=== PATIENT | female | born 1985 | race Caucasian/White ===

== ENCOUNTER 2016-08-06 18:45 | Emergency (ER) | payer MEDICAID ==
[2016-08-06 18:48] VITALS: BP 139/95
[2016-08-06] MEDS ORDERED: Ketorolac 60 MG/2 ML SDV IM ONE (18:49)
[2016-08-06] MEDS ORDERED: Ondansetron 4 MG Tab.DIS PO ONE (18:49)
[2016-08-06] MEDS ORDERED: Ondansetron 4 MG Tab.DIS ONE (19:00)
[2016-08-06] MEDS ORDERED: Ketorolac 10 MG Tab ONE (19:00)
--- NOTE | 2016-08-06 23:06 | ER ---
HISTORY OF PRESENT ILLNESS: A 31-year-old lady who comes in with her with complaints of a migraine headache. She has had the headache for several days. It started out on the left side of her head, now it has rotated to the right side of her head the last couple of days and it wraps over the top of her head. She states this is her typical migraine. The patient has Topamax that she takes at home. She also uses Imitrex, it is not helping this time. She has been involved with a neurologist recently, and they are increasing her Topamax. The patient has an upcoming appointment in a few days with a neurologist once again. She denies any falls or injuries. She is sensitive to loud noises and to a lesser degree bright lights with this headache. The patient has tried going to work today, and her headache got worse. She rates her pain currently at 8/10. OBJECTIVE: GENERAL APPEARANCE: The patient is awake and alert. She is lying quietly on the exam table. She is able to sit up without any difficulty. VITAL SIGNS: Reviewed. Blood pressure 139/95, pulse is 95, O2 sats are good. NECK: Supple. LUNGS: Clear. ORAL: Mucous membranes are moist. Tonsils not enlarged or injected. Pharynx not inflamed. SKIN: Warm and dry. DIAGNOSIS: Migraine headache. TREATMENT PLAN: Toradol 60 mg was given IM, Zofran 4 mg was given sublingually. We monitored the patient for about 30 minutes, and her pain decreased to a 5/10. She feels that she is definitely improving. At this point, she will be discharged home with her . She is to get a good night's sleep tonight, and she is to take the day off tomorrow. I did give her more Toradol tablets. She can take 10 mg every 8 hours giving 3 more tablets, and we gave her a few Zofran sublingual tablets to take every 4 hours as needed. She is to get rest tonight and tomorrow and increase activity as tolerated. I do want the patient to follow up with a neurologist as scheduled or her primary care provider by early next week if her symptoms have not resolved. CRS/MODL /[id number]
== END 2016-08-06 19:15 | disposition home or self-care (01) ==
LOC: LB.ED 18:45
DX: G43.909 Migraine, unspecified, not intractable, without status migrainosus (principal)
CPT/HCPCS: 96372; 99283; A9270; J1885

== ENCOUNTER 2016-08-18 21:23 | Emergency (ER) | payer MEDICAID ==
[2016-08-18] MEDS ORDERED: Cephalexin 500 MG Cap ONE (22:30)
[2016-08-18] MEDS ORDERED: Acetaminophen/oxyCODONE 325-5 MG Tab ONE (22:30)
[2016-08-18] MEDS ORDERED: Phenazopyridine 100 MG Tab ONE (22:30)
[2016-08-18 22:39] VITALS: BP 133/89
--- NOTE | 2016-08-21 00:38 | ER ---
The patient enters the ER with 1-day history of urinary frequency and dysuria especially at the end of her urination. She has had no fevers, no vomiting, no urgency, no recent foreign travel. She does have a history of kidney stones, and she does have a history of mild chronic renal insufficiency. REVIEW OF SYSTEMS: CONSTITUTIONAL: The patient denies any fever or fatigue. She did have some recent weight gain when she was put on a mood stabilizer. She no longer takes that medication. EYES: Show no vision changes. EARS, NOSE, AND THROAT: No complaints. CARDIOVASCULAR: No complaints of chest pain or palpitations. RESPIRATORY: No coughing, wheezing, or shortness of breath. GI: No nausea, vomiting, diarrhea, constipation, heartburn, or rectal bleeding. : As above with one day of frequency and pain at the end of urination but no urgencies, no fever or burning. MUSCULOSKELETAL: No joint pain. SKIN: No rashes. NEURO: No focal weaknesses or headaches. PSYCH: She does have history of anxiety/depression which seems to be relatively controlled at the moment. PHYSICAL EXAMINATION: GENERAL: A well-developed, well-nourished female. She is alert. She is oriented x3. She is in no acute distress. VITAL SIGNS: Stable. Blood pressure is 133/89, pulse 77, saturations 100%. She is afebrile. EYES: Show EOMI, PERRLA. EARS, NOSE, AND THROAT: Clear. NECK: Symmetrical. No palpable thyroid. No bruits. LYMPH NODE: Exam is negative. LUNGS: Clear. HEART: Shows regular rate and rhythm. No murmurs, rubs, or gallops. No S3, no S4. ABDOMEN: Soft, nontender. No masses. No suprapubic pain. No CVA tenderness. EXTREMITIES: No clubbing, cyanosis, or edema. She has normal gait. No joint inflammation or restricted motion. SKIN: Shows no rashes or sores. NEUROLOGIC: Cranial nerves intact. No focal deficits in motor, sensory, or cerebellar dysfunction. PSYCH: Normal judgment and insight. Her memory is intact. Her mood is appropriate. She is oriented x3. ASSESSMENT: 1. Urinary tract infection. 2. History of kidney stones. 3. History of mild chronic renal insufficiency. PLAN: The patient will be started on the antibiotic. She was given Keflex in the emergency room 500 mg p.o. t.i.d. #20. She will be started on Pyridium one p.o. t.i.d. #12 and for pain as needed. She will get Percocet 5-325 one p.o. q.6 hours p.r.n. #10. She is to avoid nonsteroidals due to her chronic renal insufficiency. In clinic, recent lab show a GFR of 52. She will be referred to Urology as an outpatient for evaluation of renal function. If her bladder is emptying properly and there are no residual kidney stones, then she will have nephrology evaluation for her renal insufficiency. KRIS/FREDDIE /[id number]
== END 2016-08-18 22:40 | disposition home or self-care (01) ==
LOC: LB.ED 21:23
DX: N39.0 Urinary tract infection, site not specified (principal); Z87.440 Personal history of urinary (tract) infections; N18.9 Chronic kidney disease, unspecified
CPT/HCPCS: 81001; 99283; A9270

== ENCOUNTER 2016-12-16 05:07 | Observation (INO) | payer MEDICAID ==
[2016-12-16] MEDS ORDERED: HYDROmorphone 2 MG/ML Syringe SUBCUT ONE (05:45)
[2016-12-16] MEDS ORDERED: Promethazine 25 MG/ML SDV IM ONE (05:50)
--- NOTE | 2016-12-16 05:53 | EDM.PDOC ---
ED HPI GENERAL MEDICAL PROBLEM - General Chief Complaint: General Stated Complaint: POSSIBLE KIDNEY STONE Time Seen by Provider: 12/16/16 05:45 Source of Information: Reports: Patient, RN History Limitations: Reports: No Limitations - History of Present Illness INITIAL COMMENTS - FREE TEXT/NARRATIVE: 31 yr female presents with severe left sided back pain and radiates around into groin. States history of kidney stones 2 year ago. States she is menstruating too and unable to void at this time. Onset: Today Onset Date: 12/16/16 Onset Time: 03:00 Location: Reports: Back Left Abdominal Pain Score (Numeric/FACES): 9 - Related Data Allergies Allergy/AdvReac Type Severity Reaction Status Date / Time doxycycline Allergy Nausea Verified 12/16/16 05:34 Home Meds: Home Meds Topiramate [Topamax] 100 mg PO DAILY 05/18/14 [History] Venlafaxine HCl [Venlafaxine HCl] 75 mg PO DAILY 08/18/16 [History] Past Medical History HEENT History: Reports: Impaired Vision Genitourinary History: Reports: Renal Calculus [employer] History: Reports: Neurological History: Reports: Migraines Psychiatric History: Reports: Anxiety, Depression - Infectious Disease History Infectious Disease History: Reports: Chicken Pox - Past Surgical History Female Surgical History: Reports: Section Social & Family History - Family History Family Medical History: Noncontributory - Tobacco Use Smoking Status *Q: Never Smoker Second Hand Smoke Exposure: No - Caffeine Use Caffeine Use: Reports: Coffee - Alcohol Use Days Per Week of Alcohol Use: 0 - Recreational Drug Use Recreational Drug Use: No ED ROS GENERAL - Review of Systems Review Of Systems: See Below Constitutional: Reports: No Symptoms HEENT: Reports: No Symptoms Respiratory: Reports: No Symptoms Cardiovascular: Reports: No Symptoms GI/Abdominal: Reports: Abdominal Pain, Nausea : Reports: Other (menstrating) Musculoskeletal: Reports: Back Pain ED EXAM, GENERAL - Physical Exam Exam: See Below Exam Limited By: No Limitations General Appearance: Alert, WD/WN Head: Atraumatic, Normocephalic Respiratory/Chest: No Respiratory Distress GI/Abdominal: Soft, No Distention, Guarding Back Exam: Other (left sided back pain) Neurological: Alert, Oriented Psychiatric: Normal Affect, Normal Mood Skin Exam: Warm, Dry, Normal Color Course - Vital Signs Last Recorded V/S: Last Vital Signs Temp 94.2 F L 12/16/16 05:38 Pulse 68 12/16/16 05:38 Resp 20 12/16/16 05:38 BP 134/91 H 12/16/16 05:38 Pulse Ox 100 12/16/16 05:38 - Orders/Labs/Meds Orders: Active Orders 24 hr Category Date Time Status Patient Status [ADT] Routine ADT 12/16/16 07:15 Ordered Oxygen Therapy [RC] PRN Care 12/16/16 07:15 Ordered VTE/DVT Education [RC] Per Unit Routine Care 12/16/16 07:15 Ordered Vital Signs [RC] Q4H Care 12/16/16 07:15 Ordered Regular Diet [DIET] Diet 12/16/16 Lunch Ordered Abdomen Pelvis wo Cont [CT] Stat Exams 12/16/16 05:58 Taken URINALYSIS W/MICROSCOPIC [UA W/MICROSCOPIC] [URIN] Stat Lab 12/16/16 06:01 Uncollected Acetaminophen [Tylenol] Med 12/16/16 07:15 Ordered 650 mg PO Q4H PRN Sodium Chloride 0.9% [Normal Saline] 1,000 ml Med 12/16/16 06:00 Active IV ASDIRECTED Resuscitation Status Routine Resus Stat 12/16/16 07:15 Ordered Medication Orders Acetaminophen (Tylenol) 650 mg PO Q4H PRN PRN Reason: Pain (Mild 1-3)/fever Sodium Chloride (Normal Saline) 1,000 mls @ 150 mls/hr IV ASDIRECTED VENECIA Last Admin: 12/16/16 06:15 Dose: 150 mls/hr Labs: Laboratory Tests 12/16/16 12/16/16 Range/Units 06:40 06:40 WBC 9.7 (4.0-11.0) K/uL RBC 3.79 L (3.80-5.80) M/uL Hgb 12.9 (11.5-16.5) g/dL Hct 37.0 (37.0-47.0) % MCV 98 H (76-96) fL MCH 34.0 H (27.0-32.0) pg MCHC 34.9 (31.0-35.0) g/dL RDW 11.9 (11.0-16.0) % Plt Count 214 D (150-500) K/uL MPV 9.8 (6.0-10.0) fL Neut % (Auto) 75.3 H (45.0-70.0) % Lymph % (Auto) 18.5 L (20.0-40.0) % [place] % (Auto) 5.0 (3.0-10.0) % Eos % (Auto) 0.9 L (1.0-5.0) % Baso % (Auto) 0.3 (0.0-0.5) % Neut # (Auto) 7.33 (2.00-7.50) K/uL Lymph # (Auto) 1.80 (1.50-4.00) K/uL [place] # (Auto) 0.49 (0.20-0.80) K/uL Eos # (Auto) 0.09 (0.04-0.40) K/uL Baso # (Auto) 0.03 (0.02-0.10) K/uL Sodium 141 (136-145) mmol/L Potassium 3.4 L (3.5-5.1) mmol/L Chloride 109 H (98-107) mmol/L Carbon Dioxide 22.2 (21.0-32.0) mmol/L Anion Gap 13.2 (5.0-15.0) mmol/L BUN 15 (8-26) mg/dL Creatinine 1.17 H (0.55-1.02) mg/dL Est Cr Clr Drug Dosing 54.09 mL/min Estimated GFR (MDRD) 53 L (>60) MLS/MIN BUN/Creatinine Ratio 12.8 (6-25) Glucose 104 H (74-100) mg/dL Calcium 8.2 L (8.5-10.1) mg/dL Meds: Medications Generic Name Dose Route Start Last Admin Trade Name Freq PRN Reason Stop Dose Admin Acetaminophen 650 mg 12/16/16 07:15 Tylenol PO Q4H PRN Pain (Mild 1-3)/fever Sodium Chloride 1,000 mls @ 150 mls/hr 12/16/16 06:00 12/16/16 06:15 Normal Saline IV 150 mls/hr ASDIRECTED VENECIA Administration Discontinued Medications Generic Name Dose Route Start Last Admin Trade Name Freq PRN Reason Stop Dose Admin Hydromorphone HCl 2 mg 12/16/16 05:45 12/16/16 05:48 Dilaudid SUBCUT 12/16/16 05:46 2 mg ONETIME ONE Administration Ketorolac Tromethamine 30 mg 12/16/16 07:15 Toradol IVPUSH 12/16/16 07:19 Q6H PRN Pain (moderate 4-6) Promethazine HCl 25 mg 12/16/16 05:50 12/16/16 05:51 Phenergan IM 12/16/16 05:51 25 mg ONETIME ONE Administration Departure - Departure Time of Disposition: 07:15 Disposition: Refer to Observation Condition: Good Clinical Impression: Hydroureteronephrosis, History of kidney stones - Discharge Information Forms: ED Department Discharge - My Orders Last 24 Hours: My Active Orders 12/16/16 05:58 Abdomen Pelvis wo Cont [CT] Stat 12/16/16 06:00 Sodium Chloride 0.9% [Normal Saline] 1,000 ml IV ASDIRECTED 12/16/16 06:01 URINALYSIS W/MICROSCOPIC [UA W/MICROSCOPIC] [URIN] Stat 12/16/16 07:15 Patient Status [ADT] Routine Oxygen Therapy [RC] PRN VTE/DVT Education [RC] Per Unit Routine Vital Signs [RC] Q4H Acetaminophen [Tylenol] 650 mg PO Q4H PRN Resuscitation Status Routine 12/16/16 Lunch Regular Diet [DIET] - Assessment/Plan Last 24 Hours: My Active Orders 12/16/16 05:58 Abdomen Pelvis wo Cont [CT] Stat 12/16/16 06:00 Sodium Chloride 0.9% [Normal Saline] 1,000 ml IV ASDIRECTED 12/16/16 06:01 URINALYSIS W/MICROSCOPIC [UA W/MICROSCOPIC] [URIN] Stat 12/16/16 07:15 Patient Status [ADT] Routine Oxygen Therapy [RC] PRN VTE/DVT Education [RC] Per Unit Routine Vital Signs [RC] Q4H Acetaminophen [Tylenol] 650 mg PO Q4H PRN Resuscitation Status Routine 12/16/16 Lunch Regular Diet [DIET]
[2016-12-16] MEDS ORDERED: Sodium Chloride 0.9% 1,000 ML IV SCH (06:00)
[2016-12-16] MEDS ORDERED: Acetaminophen 325 MG Tab PO PRN (07:15)
[2016-12-16] MEDS ORDERED: Ketorolac 60 MG/2 ML SDV IVPUSH PRN (07:15)
[2016-12-16] MEDS ORDERED: HYDROmorphone 2 MG/ML Syringe IVPUSH PRN (08:10)
[2016-12-16] MEDS ORDERED: Ketorolac 10 MG Tab PO PRN (09:19)
[2016-12-16] MEDS ORDERED: Tamsulosin 0.4 MG Cap.ER PO ONE (09:20)
--- NOTE | 2016-12-16 10:15 | CT ---
DATE OF SERVICE: 12/16/16 CLINICAL DATA: flank pain UNENHANCED ABDOMEN AND PELVIC CT: Multislice acquisition through the abdomen and pelvis without IV or oral contrast was performed. No priors. The lung bases are clear. The unenhanced liver appears normal. No focal hepatic lesions. The gallbladder appears normal. The spleen appears normal. 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 The pancreas appears normal. The right and left adrenals appear normal. There are multiple nonobstructing renal calculi on the left. There is a 2 mm distal ureteral calculus on the left located in the distal left ureter just proximal to the ureterovesical junction. There is mild hydronephrosis and hydroureter proximal to it consistent with obstruction. No nephrocalcinosis or nephrolithiasis on the right. No hydronephrosis or hydroureter on the right. The bladder is partially fluid-filled. There is apparent diffuse bladder wall thickening. This is probably related to nondistension. Cystitis should at least be considered. No evidence of appendicitis. No free air. No free fluid. No dilated loops of bowel. No adenopathy. No aortic aneurysm. There are paraumbilical ventral hernias containing fat. There is a gas density structure within the vagina consistent with a tampon. No other significant findings. IMPRESSION: A 2 mm distal ureteral calculus on left with obstruction. Nonobstructing renal calculi on left. Other findings as discussed above. [id number] [facility]
--- NOTE | 2016-12-16 13:35 | PCM.DCSUM1 ---
Discharge Summary - Hospital Course Free Text/Narrative:: 31 yr female presents this am with left flank pain radiating into groin. History of renal calculi. CT completed and 2mm distal ureteral calculus noted with mild hydronephrosis. Reviewed case with Dr Adam, urologist, Stacey Sher and states pt should pass stone within next 3-5 days. Recommend return in next week if temperature noted or signs of UTI. Rx for Flomax and Ketorolac sent to [facility] for pt. Pt to strain urine at home and bring any stone in for analysis. Recommend up ad drake at home and increase fluids with regular diet. RTC within 2 weeks for follow-up or sooner if pain persists or temperature or signs of UTI. - Discharge Data Discharge Date: 12/16/16 Discharge Disposition: Home, Self-Care 01 Condition: Good - Discharge Diagnosis/Problem(s) (1) Renal calculus, left SNOMED Code(s): 80717828 ICD Code: N20.0 - CALCULUS OF KIDNEY Status: Acute Priority: High Current Visit: Yes - Patient Instructions Diet: Regular Diet as Tolerated Activity: As Tolerated Driving: Do Not Drive Showering/Bathing: May Shower Notify Provider of: Fever, Increased Pain Other/Special Instructions: Return for follow-up in 2 weeks or sooner if increase in pain or signs of UTI. Take Ketorolac after eating to prevent GI distress. - Discharge Plan Home Medications: Home Meds Topiramate [Topamax] 100 mg PO DAILY 05/18/14 [History] Venlafaxine HCl [Venlafaxine HCl] 75 mg PO DAILY 08/18/16 [History] Patient Handouts: Kidney Stones, [id number], Tamsulosin capsules, Ketorolac tablets Forms: ED Department Discharge Referrals: PCP,None [Primary Care Provider] - - Patient Data Vitals - Most Recent: Last Vital Signs Temp 98 F 12/16/16 08:15 Pulse 88 12/16/16 08:15 Resp 16 12/16/16 08:15 BP 107/70 12/16/16 08:15 Pulse Ox 99 12/16/16 08:15 Weight - Most Recent: 7 lb 8 oz I&O - Last 24 hours: Intake & Output 12/15/16 12/16/16 12/16/16 22:59 06:59 14:59 Intake Total 0 Balance 0 Lab Results - Last 24 hrs: Laboratory Results - last 24 hr 12/16/16 Range/Units Unknown Urine Color Yellow Urine Appearance Clear (CLEAR) Urine pH 6.5 (5.0-8.0) Ur Specific [place] 1.015 (1.003-1.030) Urine Protein Negative (NEGATIVE) mg/dL Urine Glucose (UA) Negative (NEGATIVE) mg/dL Urine Ketones Negative (NEGATIVE) mg/dL Urine Occult Blood Moderate H (NEGATIVE) Urine Nitrite Negative (NEGATIVE) Urine Bilirubin Negative (NEGATIVE) Urine Urobilinogen 0.2 (0.2-1.0) E.U./dL Ur Leukocyte Esterase Negative (NEGATIVE) Urine RBC 5-10 H /HPF Urine WBC Not seen /HPF Ur Squamous Epith Cells Few /HPF Med Orders - Current: Current Medications Acetaminophen (Tylenol) 650 mg PO Q4H PRN PRN Reason: Pain (Mild 1-3)/fever Ketorolac Tromethamine (Toradol) 10 mg PO Q6H PRN PRN Reason: Pain Stop: 12/21/16 09:20 Last Admin: 12/16/16 09:55 Dose: 10 mg Discontinued Medications Hydromorphone HCl (Dilaudid) 2 mg SUBCUT ONETIME ONE Stop: 12/16/16 05:46 Last Admin: 12/16/16 05:48 Dose: 2 mg Hydromorphone HCl (Dilaudid) 1 mg IVPUSH Q2H PRN PRN Reason: Pain Last Admin: 12/16/16 08:20 Dose: 1 mg Sodium Chloride (Normal Saline) 1,000 mls @ 150 mls/hr IV ASDIRECTED VENECIA Last Admin: 12/16/16 06:15 Dose: 150 mls/hr Ketorolac Tromethamine (Toradol) 30 mg IVPUSH Q6H PRN PRN Reason: Pain (moderate 4-6) Stop: 12/16/16 07:19 Promethazine HCl (Phenergan) 25 mg IM ONETIME ONE Stop: 12/16/16 05:51 Last Admin: 12/16/16 05:51 Dose: 25 mg Tamsulosin HCl (Flomax) 0.4 mg PO ONETIME ONE Stop: 12/16/16 09:21 Last Admin: 12/16/16 09:55 Dose: 0.4 mg *Q Meaningful Use (DIS) - VTE *Q VTE Criteria *Q: - Stroke *Q Stroke Criteria *Q: - AMI *Q AMI Criteria *Q:
[2016-12-16 13:56] VITALS: BP 90/59
== END 2016-12-16 13:40 | disposition home or self-care (01) ==
LOC: LB.ED 05:07 → LB.MS 07:15
PROVIDERS: ADMIT Nurse Practitioner Family; ATTEND Nurse Practitioner Family
DX: N20.0 Calculus of kidney (principal); F41.9 Anxiety disorder, unspecified; F32.9 Major depressive disorder, single episode, unspecified; Z88.1 Allergy status to other antibiotic agents; Z98.890 Other specified postprocedural states; Z79.899 Other long term (current) drug therapy
CPT/HCPCS: 36415; 74176; 80048; 81001; 85025; 96372; 96374; 99284; A9270; G0378; J1170; J2550; J7040

== ENCOUNTER 2022-05-17 19:49 | Emergency (ER) | payer MEDICAID ==
[2022-05-17] MEDS ORDERED: Acetaminophen/HYDROcodone 325-5 MG Tab ONE (20:55)
[2022-05-17 21:59] VITALS: BP 140/92; PULSE 92
== END 2022-05-17 21:00 | disposition home or self-care (01) ==
LOC: LB.ED 19:49
DX: S63.502A Unspecified sprain of left wrist, initial encounter (principal); Z88.1 Allergy status to other antibiotic agents; Z88.8 Allergy status to other drugs, medicaments and biological substances; W18.30XA Fall on same level, unspecified, initial encounter
CPT/HCPCS: 73110-LT; 99283; A9270-GY

== ENCOUNTER 2023-02-22 15:45 | Emergency (ER) | payer MEDICAID ==
[2023-02-22] MEDS: methylPREDNISolone Sodium Succinate 125 MG/2 ML SDV IM ONE (16:25)
[2023-02-22] MEDS: Ketorolac 30 MG/ML SDV IM ONE (16:25)
[2023-02-22 16:38] LABS: APPEARANCE,URINE CLOUDY (CLEAR); BILIRUBIN,URINE NEGATIVE (NEGATIVE); COLOR,URINE YELLOW; GLUCOSE,URINE NEGATIVE (NEGATIVE); KETONES,URINE NEGATIVE (NEGATIVE); LEUKOCYTE ESTERASE,URINE NEGATIVE (NEGATIVE); NITRITE,URINE NEGATIVE (NEGATIVE); OCCULT BLOOD,URINE NEGATIVE (NEGATIVE); PROTEIN,URINE NEGATIVE (NEGATIVE)
[2023-02-22] MEDS: Orphenadrine 60 MG/2 ML Inj IM ONE (17:15)
[2023-02-22] MEDS: Orphenadrine 60 MG/2 ML Inj ONE (18:55)
[2023-02-22] MEDS ORDERED: Cyclobenzaprine 10 MG Tab ONE (19:00)
[2023-02-22 19:44] VITALS: BP 137/88; PULSE 69
== END 2023-02-22 19:10 | disposition home or self-care (01) ==
LOC: LB.ED 15:45
DX: M25.552 Pain in left hip (principal); Z88.1 Allergy status to other antibiotic agents; Z88.8 Allergy status to other drugs, medicaments and biological substances
CPT/HCPCS: 73502-LT; 81003; 96372; 99283; A9270-GY; J1885; J2360; J2930

== ENCOUNTER 2023-03-05 15:16 | Emergency (ER) | payer OTHER, MEDICAID ==
[2023-03-05 15:35] VITALS: BP 140/90; PULSE 79
== END 2023-03-05 16:16 | disposition home or self-care (01) ==
LOC: LB.ED 15:16
DX: S61.213A Laceration without foreign body of left middle finger without damage to nail, initial encounter (principal); E03.9 Hypothyroidism, unspecified; Z88.8 Allergy status to other drugs, medicaments and biological substances; Z79.899 Other long term (current) drug therapy; W26.0XXA Contact with knife, initial encounter
CPT/HCPCS: 12001; 99282

== ENCOUNTER 2023-06-19 20:05 | Emergency (ER) | payer BC, MEDICAID ==
[2023-06-19 20:46] LABS: BASOPHILS ABSOLUTE AUTO 0.08 K/uL (0.02-0.10); EOSINOPHILS ABSOLUTE AUTO 0.09 K/uL (0.04-0.40); EOSINOPHILS PERCENT AUTO 1.1 % (1.0-5.0); HEMATOCRIT 42.4 % (37.0-47.0); HEMOGLOBIN 14.6 g/dL (11.5-16.5); LYMPHOCYTES ABSOLUTE AUTO 2.39 K/uL (1.50-4.00); MEAN CORPUSCULAR HGB CONC 34.4 g/dL (31.0-35.0); MEAN CORPUSCULAR VOLUME 96 fL (76-96); MEAN PLATELET VOLUME 10.6 fL (6.0-10.0); MONOCYTES ABSOLUTE AUTO 0.48 K/uL (0.20-0.80); MONOCYTES PERCENT AUTO 5.8 % (3.0-10.0); NEUTROPHILS ABSOLUTE AUTO 5.19 K/uL (2.00-7.50); NEUTROPHILS PERCENT AUTO 63.1 % (45.0-70.0); PLATELET COUNT,PLT 273 K/uL (150-500); RED BLOOD CELL COUNT 4.42 M/uL (3.80-5.80); RED CELL DISTRIBUTION WIDTH 12.3 % (11.0-16.0); WHITE BLOOD CELL COUNT,WBC 8.2 K/uL (4.0-11.0)
[2023-06-19 20:52] LABS: A/G RATIO 1.6 (0.8-2.0); ALBUMIN 3.9 g/dL (3.4-5.0); BILIRUBIN TOTAL 0.4 mg/dL (0.0-1.0); BUN/CREATININE RATIO 6.4 (6-25); CALCIUM 8.4 mg/dL (8.5-10.1); CARBON DIOXIDE,CO2 23.6 mmol/L (21.0-32.0); CREATININE 1.1 mg/dL (0.55-1.02); EST CRCL DRUG DOSING (CG) 51.81 mL/min; POTASSIUM,K 3.6 mmol/L (3.5-5.1); PROTEIN TOTAL,TP 6.4 g/dL (6.4-8.2)
[2023-06-19] MEDS: Naloxone 2 MG/2 ML Syringe IVPUSH PRN (20:58)
[2023-06-19 21:13] LABS: AMPHETAMINES SCREEN, URINE NEGATIVE (NEGATIVE); BARBITURATE SCREEN,URINE NEGATIVE (NEGATIVE); BENZODIAZEPINES SCREEN,URINE POSITIVE (NEGATIVE); METHADONE SCREEN, URINE NEGATIVE (NEGATIVE); METHAMPHETAMINES SCREEN, URINE NEGATIVE (NEGATIVE); OXYCODONE SCREEN,URINE NEGATIVE (NEGATIVE); THC SCREEN,URINE 50 NG/ML POSITIVE (NEGATIVE)
[2023-06-20] MEDS: Sodium Chloride 0.9% 1,000 ML IV ONE (01:55)
[2023-06-20] MEDS: Naloxone 2 MG/2 ML Syringe IVPUSH PRN (01:55)
[2023-06-20] MEDS: Acetaminophen 500 MG Tab PO ONE (04:21)
[2023-06-20] MEDS: Acetaminophen 500 MG Tab ONE (04:51)
[2023-06-20 10:30] LABS: BENZODIAZEPINES SCREEN,URINE POSITIVE (NEGATIVE); THC SCREEN,URINE 50 NG/ML POSITIVE (NEGATIVE)
[2023-06-20 10:31] LABS: AMPHETAMINES SCREEN, URINE NEGATIVE (NEGATIVE); BARBITURATE SCREEN,URINE NEGATIVE (NEGATIVE); METHADONE SCREEN, URINE NEGATIVE (NEGATIVE); METHAMPHETAMINES SCREEN, URINE NEGATIVE (NEGATIVE); OXYCODONE SCREEN,URINE POSITIVE (NEGATIVE)
[2023-06-20] MEDS: Ondansetron 4 MG Tab.DIS PO ONE (11:09)
[2023-06-20] MEDS: Ondansetron 4 MG Tab.DIS ONE (11:15)
[2023-06-20 12:16] VITALS: BP 88/58; PULSE 88
== END 2023-06-20 11:30 ==
LOC: LB.ED 20:23 → SUPCPDRO 20:23 → LB.ED 06-20 11:30
DX: T40.2X2A Poisoning by other opioids, intentional self-harm, initial encounter (principal); Z79.899 Other long term (current) drug therapy; Z88.1 Allergy status to other antibiotic agents; Z88.8 Allergy status to other drugs, medicaments and biological substances
CPT/HCPCS: 36415; 80053; 80143; 80307; 81025; 85025; 87635; 93005; 93010; 96374; 96376; 99284; 99285; A9270; J2310; J7030; Q0162; U0002

== ENCOUNTER 2023-07-16 15:10 | Emergency (ER) | payer OTHER ==
[2023-07-16] MEDS: Ketorolac 30 MG/ML SDV IM ONE (15:42)
[2023-07-16 16:01] VITALS: BP 136/96; PULSE 105
== END 2023-07-16 16:18 | disposition home or self-care (01) ==
LOC: LB.ED 15:10
DX: M25.512 Pain in left shoulder (principal); J45.909 Unspecified asthma, uncomplicated; Z88.8 Allergy status to other drugs, medicaments and biological substances; Z88.1 Allergy status to other antibiotic agents; Z79.899 Other long term (current) drug therapy
CPT/HCPCS: 73030; 96372; 99283; J1885

== ENCOUNTER 2024-01-02 14:35 | Emergency (ER) | payer BC, OTHER ==
[2024-01-02] MEDS: Lidocaine 1% 5 ML VIAL INJECT ONE (15:08)
[2024-01-02] MEDS: Bacitracin Oint 1 GM U/D Packet TOP ONE (15:20)
[2024-01-02] MEDS: Diphtheria,Pertussis(Acell),Tetanus Vaccine 0.5 ML Syringe IM ONE (15:30)
[2024-01-02] MEDS: Lidocaine 1% 5 ML VIAL INFILT ONE (18:08)
[2024-01-02 18:10] VITALS: BP 119/85; PULSE 67
== END 2024-01-02 15:35 | disposition home or self-care (01) ==
LOC: LB.ED 14:35
DX: S61.011A Laceration without foreign body of right thumb without damage to nail, initial encounter (principal); Z23 Encounter for immunization; J45.909 Unspecified asthma, uncomplicated; Z79.899 Other long term (current) drug therapy; Z88.1 Allergy status to other antibiotic agents; Z88.8 Allergy status to other drugs, medicaments and biological substances
CPT/HCPCS: 12001; 90471; 90715; 99282-25; 99283